=== PATIENT | female | born 1940 | race Caucasian/White ===

== ENCOUNTER 2022-02-05 10:30 | Outpatient (RCR) | payer OTHER, SELFPAY | END 2022-02-05 23:59 | disposition home or self-care (01) | LOC: ANHAUDIO 10:30 | PROVIDERS: PCP Family Medicine; Visit Provider Family Medicine | DX: Z46.1 Encounter for fitting and adjustment of hearing aid (principal) | CPT/HCPCS: 99199; V5261 ==

== ENCOUNTER 2023-12-11 08:22 | Emergency (ER) | payer OTHER, SELFPAY ==
--- NOTE | ~2023-12-11 | XR_ITS ---
XR ankle LT min 3V DATE: 12/11/2023 09:15 INDICATION: Pain and swelling of left ankle. No injury. TECHNIQUE: 4 views COMPARISON: None FINDINGS: Moderate anterolateral soft tissue swelling of the ankle. No fracture or dislocation of the ankle with disruption of the ankle mortise. No periosteal reaction or bone destruction. Mild plantar calcaneal enthesopathy. IMPRESSION: Moderate anterolateral soft tissue swelling; no fracture or dislocation is detected Mild plantar calcaneal enthesopathy Reviewed, dictated and finalized at location A. IMPRESSION: Moderate anterolateral soft tissue swelling; no fracture or disloca tion is detected Mild plantar calcaneal enthesopathy
[2023-12-11 08:30] VITALS: BP 131/57; PULSE 83; RESP 20; TEMP 36.5; O2SAT 98
--- NOTE | 2023-12-11 08:55 | ED.GENADULT ---
HPI - General Adult General Chief complaint: Extremity Problem,Nontraumatic Stated complaint: Left foot swollen/pain Time Seen by Provider: 12/11/23 08:50 Source: patient, family, RN notes reviewed and old records reviewed Mode of arrival: wheelchair Limitations: no limitations History of Present Illness HPI narrative: 83 year old female accompanied by daughter presents to express care with complaints of left ankle pain and swelling for the past 2 days making it difficult and painful to ambulate. Patient reports that she has had a previous episode of similar pain that did resolve with ice and elevation and OTC medication such as Tylenol. Patient reports no injury to her left foot or ankle,states some itching to skin with no rash noted,reports feelings of warmth to left anterior and lateral ankle.Patient reports that she takes daily one aspirin and Tylenol for chronic back pain. MD complaint: swelling and pain to left ankle with warmth and some itching Onset (ago): day(s) (2) Location: left and lower extremity (ankle) Exacerbating factors: movement and other (ambulation) Treatments prior to arrival: aspirin and other (Tylenol) Related Data Home Medications Medication Instructions Recorded Confirmed amlodipine 5 mg tablet mg 12/11/23 atorvastatin 20 mg tablet mg 12/11/23 omeprazole 20 mg capsule,delayed mg 12/11/23 release valsartan 160 mg tablet mg 12/11/23 Allergies Allergy/AdvReac Type Severity Reaction Status Date / Time No Known Allergies Allergy Unverified 04/13/18 11:03 Review of Systems Review of Systems: CONSTITUTIONAL: Denies fever, chills, or sweats. EYES: Denies visual changes, redness, or discharge. ENT: Denies rhinorrhea, congestion, sore throat, or otalgia. CARDIOVASCULAR: Denies chest pain, palpitations, or edema. RESPIRATORY: Denies cough or dyspnea. GASTROINTESTINAL: Denies abdominal pain, nausea, vomiting, or diarrhea. GENITOURINARY: Denies dysuria or hematuria. SKIN: Denies rash, reports some itching to left ankle MUSCULOSKELETAL: Reports history of chronic back pain,positive for left ankle swelling and pain with some noted warmth to area, or myalgia. NEUROLOGIC: Denies headache, numbness, or weakness. PSYCHIATRIC: Denies anxiety or depression. All systems reviewed & are unremarkable except as noted in HPI and below [facility] Past Medical History Medical History (Updated 12/13/23 @ 10:02 by Kasey Ghosh NP) Arthritis Chronic back pain GERD (gastroesophageal reflux disease) Hyperlipidemia Hypertension Surgical History Surgical History (Updated 12/13/23 @ 09:57 by Kasey Ghosh NP) History of carpal tunnel release right Hx of appendectomy Hx of tonsillectomy Family History Family History (Updated 10/02/16 @ 23:56 by DOCTOR UNKNOWN) Sibling Family history of diabetes mellitus in first degree relative Father Family history of diabetes mellitus in first degree relative, Onset Age: 84 Patient's father is Social History Social History (Updated 12/11/23 @ 09:22 by Kasey Ghosh NP) Smoking status: Former smoker Additional smoking assessment comments: quit 1987 Alcohol intake: current Alcohol use details: social Substance use type: does not use Living arrangements: alone Occupation/Education: retired Gender identity (if verbalized by the patient): Female Comments At time of signature, agree with nursing past medical, surgical, social and family history. There is no relevant family history pertinent to the presenting complaint Exam Narrative: GENERAL: Well-appearing, well-nourished, and in no acute distress. HEAD: Normocephalic, atraumatic. EYES: PERRLA and EOMI. ENT: Nares clear, no rhinorrhea or epistaxis. Mucous membranes moist. NECK: Supple.no lymphadenopathy CHEST: Clear to auscultation. No respiratory distress.SAO2 98% on room air HEART: Regular rate and rhythm. No murmur heard. Normal peripheral pulses. ABD
== END 2023-12-11 09:48 | disposition home or self-care (01) ==
PROVIDERS: Emergency Provider Registered Nurse; PCP Family Medicine
DX: M25.572 Pain in left ankle and joints of left foot (principal); M25.472 Effusion, left ankle; Z87.891 Personal history of nicotine dependence; M19.90 Unspecified osteoarthritis, unspecified site; K21.9 Gastro-esophageal reflux disease without esophagitis; E78.5 Hyperlipidemia, unspecified; I10 Essential (primary) hypertension
CPT/HCPCS: 73610; 99213; G0463

== ENCOUNTER 2024-10-27 07:57 | Outpatient (CLI) | payer MEDICARE, SELFPAY ==
--- OUTSIDE RECORDS SUMMARY | 2024-10-27 08:02 | XMS_ITS | Encounter Summary ---
Author Organization [facility] Address [address] [place] [address] Care Team Providers Care Insulation Estimator Name Role Phone Unavailable Primary Care Provider Unavailabl e Encounter Details Date Type Department Care Team (Late st Contact Info) Description 11/10/2021 Lab Requisition [facility] [address] [place] [address] Arnel Rivero Jr., MD [address] [place] [address] Social History Tobacco Use Types Packs/Day Years Used Date Smoking Tobacco: Never Assessed Comments Unknown Sex and Gender Information Value Date Recorded Sex Assigned at Not on file Legal Sex Female 4:41 PM CDT Gender Identity Not on file Sexual Orientation Not on file documented as of this encounter Plan of Treatment Not on file documented as of this encounter Procedures Procedure Name Priority Date/Time Associated Diagnosis Comments DERMATOPATHOLOGY Routine 11/07/2021 12:0 0 AM CDT documented in this encounter Results * DERMATOPATHOLOGY (11/07/2021 12:00 AM CDT) Case Report Dermatopathology Report Case: [id number] Authorizing Provider: Arnel Rivero Jr., MD Collected: 11/07/2021 12:00 AM Ordering Location: [facility] Received: 11/10/2021 10:12 AM Pathologist: Stacie Bailon MD Specimen: Skin, right distal dorsal forearm 4:58 PM CDT DERMATOPATHOLOGY LABORATORY Final Diagnosis Specimen A. 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 2 4:58 PM CDT DERMATOPATHOLOGY LABORATORY Gross Description Specimen A: Received is one formalin filled container labeled with the patient's name and designated right distal dorsal forearm. The specimen consists of a shave biopsy measuring 32u23r0 mm. Jar 0. 4:58 PM CDT DERMATOPATHOLOGY LABORATORY Microscopic Description Specimen A. SKIN, right distal dorsal forearm: The epidermis shows parakeratosis, full thickness disorderly maturation of keratinocytes, mitoses at different levels, and dyskeratotic cells. There is prominent pigmentation in some of the keratinocytes. The number of melanocytes, highlighted by MART-1/Melan-A immunohistochemical staining, is only mildly increased. 4:58 PM CDT DERMATOPATHOLOGY LABORATORY Disclaimer An external and internal positive and negative controls are appropriate for the histochemical, immunohistochemical and immunofluorescence stain(s) in this case (if any), except where stated explicitly. The performance characteristics of the stain(s) cited in this report were developed and its performance characteristic determined by the Dermatopathology Laboratory at [facility], directed by Dr. Maynor Carmona. These tests need not be, and therefore are not, approved by the [place] Food and Drug Administration. The tests are used for clinical purposes. Billing Codes Specimen Charges Stain Charges 28653 1 85736 1 2 4:58 PM CDT DERMATOPATHOLOGY LABORATORY Embedded Images 2 4:58 PM CDT DERMATOPATHOLOGY LABORATORY Pathology/Cytolog y TISSUE SPECIMEN FROM SKIN / Unknown 11/07/2021 11/10/2021 10:12 AM CDT us Arnel Rivero Jr., MD LAB - PATHOLOGY/CYTOLOG Y ORDERABLES Final Result DERMATOPATHOLOGY LABORATORY [facility] - Department of Dermatology [address], [address] [phone] documented in this encounter Visit Diagnoses Not on filedocumented in this encounter
--- OUTSIDE RECORDS SUMMARY | 2024-10-27 08:02 | XMS_ITS | Encounter Summary ---
Author Organization [facility] Address [address] [place] [address] Care Team Providers Care Superintendent Warehouse Name Role Phone Unavailable Primary Care Provider Unavailabl e Encounter Details Date Type Department Care Team (Late st Contact Info) Description 05/17/2023 Lab Requisition [facility] - DermPath Lab [address] [facility] [place] [id number] Arnel Rivero Jr., MD [address] [facility] [address] [place] [address] Social History Tobacco Use Types Packs/Day Years [...] Priority Date/Time Associated Diagnosis Comments DERMATOPATHOLOGY Routine 05/14/2023 12:0 0 AM HISTORY INSTRUCTOR documented in this encounter Results * DERMATOPATHOLOGY (05/14/2023 12:00 AM HISTORY INSTRUCTOR) Case Report Dermatopathology Report Case: [id number] Authorizing Provider: Arnel Rivero Jr., MD Collected: 05/14/2023 12:00 AM Ordering Location: [facility]erm[facility] Lab Received: 05/17/2023 01:04 PM Pathologist: Marie Clark MD Specimens: A) - Skin, left superior forehead B) - Skin, left anterior latral proximal upper arm 1:50 PM HISTORY INSTRUCTOR DERMATOPATHOLOGY LABORATORY Final Diagnosis Specimen A. 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 SKIN, left anterior latral proximal upper arm: BASAL CELL CARCINOMA, SUPERFICIAL MULTIFOCAL (C44.619) 1:50 PM [facility] DERMATOPATHOLOGY LABORATORY Clinical History A: Basal Cell Carcinoma vs. Irritated Seborrheic Keratosis B: Basal Cell Carcinoma 1:50 PM [facility] DERMATOPATHOLOGY LABORATORY Gross Description Specimen A: Received is one formalin filled container labeled with the patient's name and designated left superior forehead. The specimen consists of a shave biopsy measuring 8x6x1 mm. Jar 0. Specimen B: Received is one formalin filled container labeled with the patient's name and designated left anterior latral proximal upper arm. The specimen consists of a shave biopsy measuring 6x5x4 mm. Jar 0. 1:50 PM [facility] DERMATOPATHOLOGY LABORATORY Microscopic Description Specimen A. SKIN, left superior forehead: The epidermis is largely unremarkable. A mild perivascular and perifollicular inflammatory infiltrate composed predominantly of lymphocytes is noted in the upper and mid dermis. Dilated thin-walled superficial dermal blood vessels are observed. Solar elastosis is present. Neutrophils, histiocytes, and multinucleated giant cells are present within the dermis. Specimen B. SKIN, left anterior latral proximal upper arm: Attached to the undersurface of the epidermis, there are small aggregates of basaloid cells with a high nuclear to cytoplasmic ratio and peripheral palisading. 1:50 PM [facility] DERMATOPATHOLOGY LABORATORY Disclaimer An external and internal positive and negative controls are appropriate for the histochemical, immunohistochemical and immunofluorescence stain(s) in this case (if any), except where stated explicitly. The performance characteristics of the stain(s) cited in this report were developed and its performance characteristic determined by the Dermatopathology Laboratory at [facility], directed by Dr. Maynro Carmona. These tests need not be, and therefore are not, approved by the [place] Food and Drug Administration. The tests are used for clinical purposes. Billing Codes Specimen Charges Stain Charges 24252 [id number] 1 1 1:50 PM [facility] DERMATOPATHOLOGY LABORATORY Embedded Images 1:50 PM [facility] DERMATOPATHOLOGY LABORATORY Pathology/Cytology TISSUE SPECIMEN FROM SKIN / Unknown 05/14/2023 05/17/2023 1:04 PM HISTORY INSTRUCTOR Miscellaneous samples (specimen) TISSUE SPECIMEN FROM SKIN / Unknown 05/14/2023 05/17/2023 1:04 PM HISTORY INSTRUCTOR us Arnel Rivero Jr., MD LAB - PATHOLOGY/CYTOLOG Y ORDERABLES Final Result DERMATOPATHOLOGY LABORATORY [facility] - Department of Dermatology [facility] [address] [place] [address], [address] [phone] documented in this encounter Visit Diagnoses Not on filedocumented in this encounter
--- OUTSIDE RECORDS SUMMARY | 2024-10-27 08:02 | XMS_ITS | Clinical Summary ---
Author Organization [facility] [address] [facility] Address [address] [place] [address] Care Team Providers Care School Guidance Counselor Name Role Phone Augustine Lanier MD Primary Care Provider [phone] Allergies No known active allergies Medications calcium carbonate-vitamin D3 (CALCIUM 600 + D,3,) 1500 mg (600 mg elemental) -400 units per tablet 0 0 07/14/19 14 Active vitamins A,C,T-pwve-xgclno (PRESERVISION AREDS) 14,[id number] kelk-ko-abmc capsule 0 0 03/18/20 16 Active aspirin 325 mg enteric coated tablet Take 1 tablet (325 mg total) by mouth as needed for pain Active acetaminophen (TYLENOL) 500 mg tablet Take 1 tablet (500 mg total) by mouth every 6 (six) hours as needed for pain Active vitamin A 10,000 unit capsule Take 1 capsule (10,000 Units total) by mouth daily Active fluticasone propionate (FLONASE) 50 mcg/actuation nasal spray Administer 1 spray into each nostril daily Active azelastine (ASTELIN) 137 mcg (0.1 %) nasal sprayIndications:C hronic rhinitis Administer 2 sprays into each nostril 2 (two) times a day Use in each nostril as directed 120 mL 11 08/03/19 23 Active Additional Information Patient not taking.Reported on 05/03/2024 Trimo-Garcia Jelly 0.025-0.01 % gel USE VAGINALLY WEEKLY DIRECTED NEEDED 09/18/19 23 Active Bacillus coagulans (PROBIOTIC, B. COAGULANS, ORAL) Take 1 tablet by mouth daily Active loratadine (CLARITIN) 10 mg tablet Take 1 tablet (10 mg total) by mouth daily Active UNABLE TO FIND Take 1 each by mouth daily Med Name: LIPO Flavonoid ADVANCED BALANCE SUPPORT Active valsartan (DIOVAN) 160 mg tabletIndications: Primary hypertension TAKE 1 TABLET(160 MG) BY MOUTH DAILY 90 tablet 1 07/06/19 25 Active azithromycin (ZITHROMAX) 250 mg tabletIndications: Lower respiratory infection Take two tabs first day, then one tab daily x 4 days 6 tablet 08/14/19 25 Active albuterol HFA (PROVENTIL HFA,VENTOLIN HFA,PROAIR HFA) 90 mcg/actuation inhaler Inhale 2 puffs every 4 (four) hours as needed for wheezing or shortness of breath 1 each 08/14/19 25 Active amLODIPine (NORVASC) 5 mg tabletIndications: Primary hypertension TAKE 1 TABLET(5 MG) BY MOUTH TWICE DAILY 200 tablet 1 08/19/19 25 Active omeprazole (PriLOSEC) 20 mg capsuleIndications :Gastroesophageal reflux disease TAKE 1 CAPSULE(20 MG) BY MOUTH TWICE DAILY 200 capsule 09/04/19 25 Active atorvastatin (LIPITOR) 20 mg tabletIndications: Mixed hyperlipidemia TAKE 1 TABLET(20 MG) BY MOUTH DAILY 90 tablet 1 09/12/19 25 Active Active Problems Problem Noted Date Diagnosed Date Left ankle swelling 05/03/2024 Left ankle pain 05/03/2024 Rosacea 05/03/2024 Assessment & Plan (05/03/2024 11:26 AM [employer]): Continue following with dermatology. BMI 23.0-23.9, adult 05/03/2024 Respiratory infection 05/03/2024 Assessment & Plan (05/03/2024 1:08 PM [employer]): Recommend oral antihistamine while symptomatic. Also Flonase. Will send in azithromycin. Reviewed the scheduling side effects. RTC if worsening or not resolving. Red flags reviewed. Osteopenia 05/03/2024 Assessment & Plan (05/03/2024 1:08 PM [employer]): Continue calcium and vitamin-D along with weight-bearing exercise. Dexa scan ordered. Will plan accordingly once results are received. Allergic conjunctivitis of both eyes 10/27/2023 Assessment & Plan (10/27/2023 11:28 AM CDT): Recommend Pataday eye drops. Make sure to wash your face and hair after being outdoors. Can also switch from Claritin to alternative oral antihistamine such as Zyrtec. Will monitor response. Chronic rhinitis 08/03/2022 Assessment & Plan (08/03/2022 1:40 PM [employer]): Nasal saline spray (Simply saline, Little Remedies, [place], [place]) 2 second sprays or 2 squeezes into each nostril while looking down over the sink, do not need to sniff in. Aquaphor apply pea-size amount into each nostril with a cotton tipped applicator, being carefully just to tuck it into each nostril, then massage soft portion of the outer nose to massage the ointment around inside the nose twice daily Consider Astelin (azelastine) 2 sprays into each nostril while looking down over the sink, do not sniff in or blow nose after use for at least 30 minutes twice daily Vertigo 08/03/2022 Assessment & Plan (08/03/2022 1:42 PM [employer]): Wear hearing aids Call for referral to Vestibular rehab Continue home exercises Change in bowel movement 07/15/2022 Irritable bowel syndrome wit h both constipation and diarrhea 07/15/2022 Tubular adenoma of colon 07/15/2022 Personal history of colonic polyps 07/15/2022 Overview (07/15/2022): Added automatically from request for surgery [id number] Renal cyst 03/31/2021 Assessment & Plan (03/31/2021 1:44 PM CDT): Renal cyst found incidentally on MRI of back. Patient is scheduled for follow up US. Blepharitis of eyelid of right eye 03/31/2021 Assessment & Plan (03/31/2021 1:45 PM CDT): No current problems. Continues warm compresses and lid washes with diluted baby shampoo. Recommended eye hygiene wipes. GERD (gastroesophageal reflux disease) Assessment & Plan (03/31/2021 1:51 PM CDT): Doing well on omeprazole. Arthritis 03/31/2021 Assessment & Plan (03/31/2021 1:58 PM CDT): Excoriation of right nare, will trial mupirocin tid x 10 days. Instructed on distal application. Encounter [place] annual [place] 03/31/2021 Assessment & Plan (05/03/2024 11:27 AM [employer]): Visit preventive in nature. We reviewed medications, chronic conditions, risk factors, lifestyle recommendations. Reviewed immunization recommendations. Follow-up in 6 months for chronic conditions and 1 year for annual wellness. Assessment & Plan (03/31/2021 2:21 PM CDT): Preventive exam; reviewed recommended preventive screenings and vaccinations. Annual influenza vaccine administered in office today. Wear sunscreen/protective clothing when outdoors. 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 Assessment & Plan (09/23/2020 3:49 PM CDT): Discussed healthy diet and importance of regular physical activity. BMI is acceptable for this patient. Bacterial conjunctivitis of right eye 09/23/2020 Assessment & Plan (09/23/2020 6:16 PM CDT): Polymyxin B sent. Two drops to affected eye four times daily for 7 days. Discussed strict hand hygiene. Not to use hand towel/wasthrag/tissues on both eyes. Discussed how highly contagious it is. Aware to not touch dropper to eye/lashes; will contaminate tip of dropper. Reviewed red flags; what would warrant further evaluation. Chronic back pain 10/27/2019 Assessment & Plan (03/31/2021 1:53 PM CDT): Patient is scheduled to start PT this month. Taking 2 extra strength acetaminophen daily. Assessment & Plan (10/27/2019 4:32 PM CDT): Cyclobenzaprine sent. Reviewed med SE & scheduling. Encouraged otc tylenol/ibuprofen prn back pain. Discussed ice, gentle ROM, increased activity/core strengthening & other non pharm methods of pain relief. Denies bowel/bladder dysfunction. Denies cauda equina. Reviewed red flags. Neoplasm of soft tissue 08/08/2019 Trigger finger, right ring finger 12/12/2018 Trigger thumb of right hand 12/12/2018 Carpal tunnel syndrome of right wrist 12/12/2018 Assessment & Plan (03/31/2021 1:53 PM CDT): Carpal tunnel release 10/2020. Doing well postoperatively, follows with plastics. Trigger finger of left thumb 12/12/2018 Cubital tunnel syndrome on right 11/03/2018 Assessment & Plan (03/31/2021 1:57 PM CDT): 10/2020. Doing well postoperatively, follows with plastics. Assessment & Plan (11/03/2018 12:58 PM CDT): Numbness, tingling, weakness for years, worsening See peripheral nerve testing above Recommend carpal tunnel release, cubital tunnel release, median nerve release at forearm, ulnar nerve transposition in the OR with Dr. Mora Discussed risks, benefits, recovery and patient would like to proceed She will make an appointment to briefly meet Dr. Mora prior to scheduling surgery. Carpal tunnel syndrome on both sides 10/22/2018 Assessment & Plan (11/03/2018 12:58 PM CDT): R>L Numbness, tingling, weakness for years, worsening See peripheral nerve testing above Recommend carpal tunnel release, cubital tunnel release, median nerve release at forearm, ulnar nerve transposition in the OR with Dr. Mora Discussed risks, benefits, recovery and patient would like to proceed She will make an appointment to briefly meet Dr. Mora prior to scheduling surgery. Assessment & Plan (10/22/2018 10:37 AM CDT): To start otc ibuprofen 800mg tid prn w/food. To roll picker over the counter brace at pharmacy & wear as much as possible. Reviewed ergonomics & lifting. To guard R wrist w/lifting as much as possible. Decrease repetitive motion as much as possible. Reviewed +EMG/NCS in recent past. Referral to Dr Mora for eval. Contact info given to mrs Banerjeegary for Dr Mora's office. Reviewed red flags, what would warrant rtc. Hypertension 11/11/2013 Overview (10/02/2016): HYPERTENSION NOS Assessment & Plan (05/03/2024 11:40 AM [employer]): Normotensive. Continue taking amlopidine and valsartan. Red flags reviewed. Assessment & Plan (10/27/2023 11:25 AM CDT): Normotensive. Readings at home are good as well. Will continue with amlodipine, valsartan. Reviewed dash diet. Will continue to monitor. Assessment & Plan (03/31/2021 1:46 PM CDT): Patient BP is well controlled today. Rarely checking at home. Is taking medication as prescribed. Denies headache, cp, palpations, or swelling of lower extremities. Assessment & Plan (09/23/2020 3:49 PM CDT): Copy of results from 09/16/20 given to Di Mcnamara. Reviewed results at time of appointment. The blood pressure is under good control. Ideally it should be under 130/80. Continue medications without adjustment. Continue efforts to eat well (4-5 fruits and veggies) daily and exercise for about 30 min nearly every day. Watch salt intake, keeping to less than 2000mg per day. Limit alcohol. Include strategies to cope with stress. Assessment & Plan (10/27/2019 4:31 PM CDT): The blood pressure is under good control. Ideally it should be under 130/80. Continue medications without adjustment. Continue efforts to eat well (4-5 fruits and veggies) daily and exercise for about 30 min nearly every day. Watch salt intake, keeping to less than 2000mg per day. Limit alcohol. Include strategies to cope with stress. Labs ordered today; will contact w/results once received. Assessment & Plan (10/22/2018 10:36 AM CDT): Hypertension is improving with treatment. Continue current treatment regimen. Dietary sodium restriction. Regular aerobic exercise. Continue current medications. Blood pressure will be reassessed at the next regular appointment. The blood pressure is under good control. Ideally it should be under 130/80. Continue medications without adjustment. Continue efforts to eat well (4-5 fruits and veggies) daily and exercise for about 30 min nearly every day. Watch salt intake, keeping to less than 2000mg per day. Limit alcohol. Include stratagies to cope with stress. Labs will be orderd today. Hyperlipidemia 11/11/2013 Overview (10/01/2016): HYPERLIPIDEMIA NEC/NOS Assessment & Plan (05/03/2024 11:28 AM [employer]): Labs look great! Continue with diet and exercise. Continue taking atorvastatin Assessment & Plan (10/27/2023 11:26 AM CDT): Well controlled on statin. Denies statin side effects. Will continue to monitor. Assessment & Plan (03/31/2021 1:46 PM CDT): Doing well on atrovastatin 20mg daily. Assessment & Plan (09/23/2020 3:42 PM CDT): 5/20/20 TC=16 HDL=52 XX=892 LDL=89 TC/HDL=3.1 09/16/20 GT=121 HDL=39 JC=241 LDL=81 TC/HDL=3.6 Copy of results FROM 09/16/20 given to Di Mcnamara. Reviewed results at time of appointment. Atorvastatin 20mg daily. Assessment & Plan (10/27/2019 4:31 PM CDT): We will check labs and make adjustments to medications as needed. Patient should focus on limiting bad fats in the diet and using exercise as a way to improve the lipid status. Secondary prevention. Reviewed medications. Lipid panel ordered; will call w/results when rec'd. Denies any statin Ses. Reviewed diet/exercise recommendations. Reviewed red flags. Assessment & Plan (10/22/2018 10:36 AM CDT): Lipid abnormalities are improving with treatment. Nutritional counseling was provided. and Pharmacotherapy as ordered. Lipids will be reassessed in 6 months. Secondary prevention. Reviewed medications. Lipid panel ordered; will call w/results when rec'd. Denies any statin Ses. Reviewed diet/exercise recommendations. Reviewed red flags. Resolved Problems Problem Noted Date Diagnosed Date Resolved Date Need for influenza vaccination 03/31/2021 10/27/2023 Encounter for osteoporosis s creening in asymptomatic postmenopausal patient 10/27/2019 03/02/2021 Assessment & Plan (10/27/2019 4:32 PM CDT): DEXA ordered. Will contact with results once received. Refused influenza vaccine 04/21/2019 Assessment & Plan (04/22/2019 5:16 PM CDT): No HD flu vaccine available today. Will rtc when shipment of HD flu vaccine is received. BMI 26.0-26.9,adult 04/21/2019 09/24/19 21 Assessment & Plan (10/27/2019 4:31 PM CDT): Discussed healthy diet and importance of regular physical activity. BMI is acceptable for this patient. Assessment & Plan (04/22/2019 5:16 PM CDT): Discussed healthy diet and importance of regular physical activity. BMI is acceptable for this patient. Medicare annual wellness visit, subsequent 04/21/2019 09/23/2020 Assessment & Plan (04/22/2019 5:17 PM CDT): 1. Eat a healthy diet: focus on lean meats and proteins, more fruits, vegetables and whole grains and low in sugars and fats. Limit red meat and avoid processed meat. 2. Maintain a healthy weight; avoid being overweight. Aim for a normal body mass index (BMI) of 18.5-24.9. Help learning to eat healthier, we can set up appointment with credentials specialist/pet counselor. 3. Have an active lifestyle, strive for 30 minutes of moderate exercise 5 times a week and strength or resistance training at least twice a week. 4. Use broad-spectrum (UVA+UVB) sunscreen with SPF 30 or greater, is water resistant, limit time spent in the sun (10 am-4pm), wear hat, wear UV protective clothing, wear sunglasses. Never use a tanning bed. Skin that was irradiated may be more sensitive over your lifetime. 5. Do not smoke or chew tobacco; participate in a smoking cessation program. 6. Limit alcohol intake, 1 drink per day for a woman BMI 25.0-25.9,adult 10/22/2018 10/27/19 20 Assessment & Plan (10/22/2018 10:36 AM CDT): BMI is acceptable for this patient. Watches intake. Hypercholesterolemia 12/12/2013 019 Overview (10/01/2016): High cholesterol Encounters Date Type Department Care Team Description 10/23/2024 Telephone [facility] [address] [address] Augustine Lanier MD 08/14/2024 10:00 AM [employer] - 08/14/2024 11:59 PM [employer] Hospital Encounter [facility] [address] [place] [address] Cough, unspecified type Discharge Disposition: Discharge to home or self care 08/14/2024 9:00 AM [employer] Office Visit [facility] [address] [place] [address] Jessica Schumacher, RANJIT Lower respiratory infection (Primary Dx); Cough, unspecified type 08/14/2024 Results Follow-Up [facility] [address] [place] [address] Jessica Schumacher NP 08/09/2024 Telephone [facility] [address] [address] Zita Boston, RANJIT Reschedule Appointment from Last 3 Months Immunizations Immunization Administration Dates Next Due H1N1 Inj 03/28/2013 Influenza, Quad, Adjuvantate d, Intramuscular 04/16/2023 Influenza, Quadrivalent, Hig h Dose, Preservative Free, Intrr 03/31/2022,03/31/2021,03/12/2020 Influenza, Quadrivalent, Spl it, Intramuscular 04/02/2015 Influenza, Quadrivalent, Spl it, Preservative Free, Intramuscular 03/18/2016 Influenza, Trivalent, High D ose, Split, Preservative Free, Intramuscular 04/11/2024,03/12/2020,04/23/2019,02/28,03/19/2017 Influenza, Trivalent, IM (MDV) 05/28/2014,2011 Influenza, Trivalent, Preser vative Free, Intramuscular 04/01/2015 Influenza, Unspecified 03/28/2022,2018,04/21/2019(Defer red: Patient Refused - Pt would like the high - dose),03/01/2018 Pneumococcal Conjugate PCV 13 03/18/2016 Pneumococcal Polysaccharide PPV23 06/28/2011,06/2010 RSV, Bivalent, Protein Subun it Rsvpref, Diluent (Abrysvo) 05/28/2023 Tdap 08/16/2018,01/04/2018 Surgical History Surgery Date Site/Laterality Comments APPENDECTOMY Appendectomy TONSILLECTOMY Tonsillectomy OTHER SURGICAL HISTORY Cancer, basal Cell: Excision COLONOSCOPY 06/28/2017 - 07/28/2017 CATARACT EXTRACTION 04/19/2023 Left Medical History Medical History Date Comments Hx Other Medical IBS Hx Other Medical ganglion cyst - Rt wrist Gastroesophageal reflux disease GERD Hypertension Hypertension Hyperlipidemia Hyperlipidemia Rosacea Rosacea Atopic rhinitis Allergic rhiniti s Hx Other Medical Back pain Superficial basal cell carcinoma Cancer, basal Cell Malignant neoplasm of skin Cance r, skin Hx Other Medical tonsilectomyu; Comments: TRR 12/12/2013 - Hx Other Medical hand cyst; Comm ents: TRR 12/12/2013 - Hx Other Medical polio; Comments : TRR 12/12/2013 - Hx Other Medical carpal tunnel; Comments: CLS 03/18/2016 - Hypercholesterolemia 12/12/2013 High choles terol Family History Medical History Relation Name Comments No Known Problems Daughter 1 Esther No Known Problems Daughter 2 Andressa Diabetes Father Diabetes mellit us; Diabetes type II Father Diabetes -T ype II; Cause of : Diabetes -Type II Hyperlipidemia Mother Hyperlipidemi a; Hypertension Mother Hypertension; Other Mother Alive and well; Diabetes Other 1 Family history of Diabetes mellitus; Hyperlipidemia Other 2 Family histor y of Hyperlipidemia; Hypertension Other 3 Family history of Hypertension; Diabetes type II Sister 1 Diabetes -T ype II; Coronary artery disease Sister 2 Megan Moura nary artery disease, premature; No Known Problems Son Arron Relation Name Status Comments Daughter 1 Esther Alive Daughter 2 Andressa Alive Father Mother Other 1 Other 2 Other 3 Sister 1 Sister 2 Megan Alive Son Arron Alive Social History Tobacco Use Types Packs/Day Years Used Date Smoking Tobacco: Former Smokeless Tobacco: Never Tobacco Cessation:Counseling Given: Not Answered Comments:Smoking History Packs/day: 1 Packs Alcohol Use Standard Drinks/Week Comments Not Currently 0 (1 standard drink = 0.6 oz pur e alcohol) AUDIT-C Answer Date Recorded Q1: How often do you have a drink containing alc ohol? 2-3 times a week 04/28/2023 Q2: How many drinks containi ng alcohol do you have on a typical day when you are drinking? 1 or 2 04/28/2023 Q3: How often do you have si x or more drinks on one occasion? Never 04/28/2023 PHQ-2 Answer Date Recorded PHQ-2 Total Score (If total score is 3 or more points, staff should administer the PHQ-9) 0 05/03/2024 Personal Safety Answer Date Recorded Getting School Help Needed Denies 06/11 Comments No Sex and Gender Information Value Date Recorded Sex Assigned at Not on file Legal Sex Female 11:50 PM [employer] Gender Identity Not on file Sexual Orientation Not on file Obstetrics History Para Term AB IAB SAB Ectopic Multiple Livin g Live Births 3 3 3 Date Outcome GA Total Labor Labor/2nd/3rd Weight Sex Type Anes PTL Marielos A1 A5 Name Clin Term Term Term Last Filed Vital Signs Vital Sign Reading Time Taken Comments Blood Pressure 146/60 08/14/2024 8:54 AM [employer] Pulse 70 08/14/2024 8:54 AM [employer] Temperature 36.4 C (97.6 F) 08/14/2024 8:54 AM [employer] Respiratory Rate 18 08/14/2024 8:54 AM [employer] Oxygen Saturation 96% 08/14/2024 8:54 AM [employer] Inhaled Oxygen Concentration - - Weight 56.7 kg (125 lb) 08/14/2024 8:54 AM [employer] Height 157.5 cm (5' 2 ) 08/14/2024 8:54 AM [employer] Body Mass Index 22.86 08/14/2024 8:54 AM [employer] Plan of Treatment Health Maintenance Due Date Last Done Comments Hepatitis B Screening 1958 Zoster Vaccine (1 of 2) 1988 Covid-19 Vaccine (2023-2 5 season) 2024 04/11/2024, 04/16/2023, 03/31/2022, Additional history exists Depression Screening 05/03/2025 05/03/2024, 04/28/2023, 10/30/2022, Additional history exists Fall Risk Assessment 05/03/2025 05/03/2024, 10/27/2023, 04/28/2023, Additional history exists Well Visit 65+ 05/03/2025 05/03/2024, 06/2022, 04/24/2022, Additional history exists Osteoporosis Screening-Bone Density Scan 06/07/2026 06/07/2024, 05/12/2022, 02/19/2020 Colon Cancer Screening-Colonoscopy 09/09/2027 09/08/2022, 07/07/2017, 02/09/2014, Additional history exists DTaP/Tdap/Td Vaccine (3 - Td or Tdap) 08/16/2028 08/16/2018, 01/04/2018 Pneumococcal vaccine 65+ Completed 016, 06/28/2011, 06/28/2010 Influenza Vaccine Completed 04/11/2024, , 03/31/2022, Additional history exists Procedures Procedure Name Priority Date/Time Associated Diagnosis Comments XR CHEST PA LATERAL 2 VIEWS Schedule REBECCA, Read REBECCA (Appt Today, Awaiting Results) 08/14/2024 10:13 AM [employer] Cough, unspecified type POCT RAPID RSV (CPT 00389) Routine 08/14/2024 9:25 AM [employer] Lower respiratory infection Cough, unspecified type POCT INFLUENZA A/B Routine 08/14/2024 9: 25 AM [employer] Lower respiratory infection Cough, unspecified type COVID-19 POC Routine 08/14/2024 9:24 AM [employer] Lower respiratory infection Cough, unspecified type DEXA AXIAL SKELETON BONE DENSITY 1 OR MORE SITES Schedule Routine, Read Routine (OP Routine) 06/07/2024 9:38 AM [employer] Osteopenia of other site COLONOSCOPY 09/08/2022 8:47 AM CDT from Last 3 Months or Most Recently Relevant to Health Maintenance Results * XR Chest Pa Lateral 2 Views (08/14/2024 10:13 AM [employer]) Anatomical Region Laterality Modality Body, Chest N/A Computed Radiogr aphy 08/14/2024 1:44 PM [employer] Narrative 08/14/2024 1:45 PM [employer] EXAM DESCRIPTION: XR CHEST PA LATERAL 2 VIEWS REASON FOR STUDY: cough, weakness, and wheezing x6 days. Rule out pneumonia. Cough x 1 week HTN-controlled TECHNIQUE: 2 radiographic view(s) of the chest. COMPARISON: Chest radiographs 04/24/2021 FINDINGS: The cardiomediastinal silhouette appears normal. There is bibasilar atelectasis, less likely pneumonia. There is no pleural effusion. There are degenerative changes in the thoracic and lumbar spine. There are aortic calcifications. IMPRESSION: Bibasilar atelectasis, less likely pneumonia. THIS IS AN ELECTRONICALLY VERIFIED FINAL REPORT 08/14/2024 1:45 PM - Electronically signed by Jerry Gonzalez M.D. JR: Report ID: [id number] Reading Location: [id number] Procedure Note Jerry Gonzalez MD - 08/14/2024 EXAM DESCRIPTION: XR CHEST PA LATERAL 2 VIEWS REASON FOR STUDY: cough, weakness, and wheezing x6 days. Rule outpneumonia. Cough x 1 week HTN-controlled TECHNIQUE: 2 radiographic view(s) of the chest. COMPARISON: Chest radiographs 04/24/2021 FINDINGS: The cardiomediastinal silhouette appears normal. There is bibasilar atelectasis, less likely pneumonia. There is no pleural effusion. Thereare degenerative changes in the thoracic and lumbar spine. There are aortic calcifications. IMPRESSION: Bibasilar atelectasis, less likely pneumonia. THIS IS AN ELECTRONICALLY VERIFIED FINAL REPORT 08/14/2024 1:45 PM - Electronically signed by Jerry Gonzalez M.D., JR: Report ID: [id number] Reading Location: [place] [address] [place] Jessica Schumacher NP IMG XR PROCEDURES Final Result * POCT rapid RSV (08/14/2024 9:25 AM [employer]) [facility] Rapid RSV, POC Negative Negative Lot Number [id number] QC Control Line Acceptable Swab 08/14/2024 9:25 AM [employer] us Jessica Schumacher NP POINT OF CARE TEST ORDERABLES Fi nal Result * POCT influenza A/B (08/14/2024 9:25 AM [employer] HAND) Rapid Influenza A Ag Negative Negative, Invalid Rapid Influenza B Ag Negative Negative, Invalid Nasal 08/14/2024 9:25 AM [employer] Jessica Schumacher PARTS DATA WRITER POINT OF CARE TEST ORDERABLES Fi nal Result * COVID-19 POC (08/14/2024 9:24 AM [employer] HAND) COVID-19 Ag POC (BD Veritor) Presumptive Negative Presumptive Negative, Invalid [facility] Nasal 08/14/2024 9:24 AM [employer] HAND Jessicaradha Schumacher PARTS DATA WRITER POINT OF CARE TEST ORDERABLES Fi nal Result [facility] [address] [place] [address], [facility] * Dexa Axial Skeleton Bone Density 1 or 2 Site (06/07/2024 9:38 AM [employer]) Anatomical Region Laterality Modality Body N/A Other 06/07/2024 5:21 PM [employer] HAND Narrative 06/07/2024 5:23 PM [employer] EXAM DESCRIPTION: DEXA AXIAL SKELETON BONE DENSITY 1 OR MORE SITES REASON FOR STUDY: 83 y/o year old F with given history of: osteopenia Screening. Postmenopausal Cotton Stomper/Model: eblizz SL (S/N [id number]) CLINICAL INFORMATION: Current height: 62 inches Maximum height: 63.75 inches Weight: 126 pounds Risk factors: Postmenopausal, inflammatory bowel disease COMPARISON: 05/12/2022 FINDINGS: AP LUMBAR SPINE L1-L4: Total BMD is 1.244 g/cm2 T-score is 1.8 This is decreased in comparison to prior exam which is statistically significant. LEFT HIP: Total BMD is 0.795 g/cm2 T-score is -1.2 This is decreased in comparison to prior exam which is statistically significant. Femoral neck BMD is 0.647 g/cm2 T-score is -1.8 FRAX: 10 year risk for a major osteoporotic fracture is 14 %, 10 year risk for a hip fracture is 4.3 % IMPRESSION: Low Bone Mass. REFERENCE: Bone mineral density: T-Score: Normal (T-score above or = -1.0) Low bone mass (T-score between -1.0 and -2.5) replaces the previously used term osteopenia Osteoporosis (T-score = or below -2.5) Z-Score: Within the expected range for age (Z-score above -2.0) Below the expected range for age (Z-score is -2.0 or below) Please see below follow up recommendations. Medical evaluation for secondary causes of low bone mineral density may be appropriate. FRAX is a World Health Organization validated fracture risk assessment tool that calculates a person's 10 year probability of a major osteoporosis related fracture and hip fracture. According to the National Osteoporosis Foundation guidelines, postmenopausal women and men age 50 or older with low bone mass and a 10 year probability of a major osteoporosis related fracture = or greater than 20% or a 10 year probability of a hip fracture = or greater than 3% should be considered for pharmacological treatment for the prevention of osteoporosis. For further information, including treatment recommendations, please refer to the 2019 ISCD Official Positions (http://www.iscd.org) and the NOF's Clinician's Guide to Prevention and Treatment of Osteoporosis (http://www.nof.org/professionals/clinical-guidelines) THIS IS AN ELECTRONICALLY VERIFIED FINAL REPORT 06/07/2024 5:23 PM - Electronically signed by Enrique Deleon M.D. MF: [email or web address] Report ID: [id number] Reading Location: [place] [address] Procedure Note Enrique Deleon MD - 06/07/2024 EXAM DESCRIPTION: DEXA AXIAL SKELETON BONE DENSITY 1 OR MORE SITES REASON FOR STUDY: 83 y/o year old F with given history of: osteopenia Screening. Postmenopausal Cotton Stomper/Model: Sparktrend Discovery SL (S/N [id number]) CLINICAL INFORMATION: Current height: 62 inches Maximum height: 63.75 inches Weight: 126 pounds Risk factors: Postmenopausal, inflammatory bowel disease COMPARISON: 05/12/2022 FINDINGS: AP LUMBAR SPINE L1-L4: Total BMD is 1.244 g/cm2 T-score is 1.8 This is decreased in comparison to prior exam which is statistically significant. LEFT HIP: Total BMD is 0.795 g/cm2 T-score is -1.2 This is decreased in comparison to prior exam which is statistically significant. Femoral neck BMD is 0.647 g/cm2 T-score is -1.8 FRAX: 10 year risk for a major osteoporotic fracture is 14 %, 10 year risk for ahip fracture is 4.3 % IMPRESSION: Low Bone Mass. REFERENCE: Bone mineral density: T-Score: Normal (T-score above or = -1.0) Low bone mass (T-score between -1.0 and -2.5) replaces thepreviously used term osteopenia Osteoporosis (T-score = or below -2.5) Z-Score: Within the expected range for age (Z-score above -2.0) Below the expected range for age (Z-score is -2.0 or below) Please see below follow up recommendations. Medical evaluation forsecondary causes of low bone mineral density may be appropriate. FRAX is a World Health Organization validated fracture risk assessmenttool that calculates a person's 10 year probability of a major osteoporosisrelated fracture and hip fracture. According to the National OsteoporosisFoundation guidelines, postmenopausal women and men age 50 or older with low bonemass and a 10 year probability of a major osteoporosis related fracture = or greater than 20% or a 10 year probability of a hip fracture = or greaterthan 3% should be considered for pharmacological treatment for the preventionof osteoporosis. For further information, including treatment recommendations, please referto the 2019 ISCD Official Positions (http://www.iscd.org) and the NOF's Clinician's Guide to Prevention and Treatment of Osteoporosis (http://www.nof.org/professionals/clinical-guidelines) THIS IS AN ELECTRONICALLY VERIFIED FINAL REPORT 06/07/2024 5:23 PM - Electronically signed by Enrique BRAVO: [facility] Report ID: [id number] Reading Location: [place] [address] us Zita Boston NP IMG DXA PROCEDURES Final R esult * COLONOSCOPY (09/08/2022 8:47 AM CDT) Anatomical Region Laterality Modality Other Narrative Procedure Note Shanice Márquez MD - 09/08/2022 8:47 AM CDT [facility] Patient Name: Di Mcnamara Procedure Date: 09/08/2022 8:47 AM Date of : 1940 Admit Type: Outpatient Age: 81 Gender: Female Attending MD: Shanice Márquez M.D. Room: [facility] ENDOSCOPY ROOM 1 Note Status: Finalized Patient Profile: This is an 81 year old female. Patient has historyof adenoma polyps. Patient has chronic diarrhea. Procedure: Colonoscopy Indications: High risk colon cancer surveillance: Personalhistory of colonic polyps, Last colonoscopy: June 2017 Referring MD: Augustine Lanier M.D. Providers: Shanice Márquez M.D. Impression: - One 12 mm polyp in the ascending colon, removedwith a cold snare. Resected and retrieved. - One 5 mm polyp in the proximal descending colon, removed with a jumbo cold forceps. Resected and retrieved. - One 10 mm polyp in the distal descending colon, removed with a cold snare. Resected andretrieved. - Random colon biopsy performed - Diverticulosis in the sigmoid colon. - Internal hemorrhoids. Recommendation: - Await pathology results. - Repeat colonoscopy is not recommended forscreening purposes. - Continue present medications. Medicines: Monitored Anesthesia Care Complications: No immediate complications. Estimated Blood Loss: Estimated blood loss: none. Procedure: Pre-Anesthesia Assessment: - Prior to the procedure, a History and Physicalwas performed, and patient medications and allergieswere reviewed. The patient's tolerance of previous anesthesia was also reviewed. The risks andbenefits of the procedure and the sedation options and risks were discussed with the patient. All questions were answered, and informed consent was obtained. Prior Anticoagulants: The patient has taken noanticoagulant or antiplatelet agents. ASA Grade Assessment: II -A patient with mild systemic disease. After reviewing the risks and benefits, the patient was deemed in satisfactory condition to undergo the procedure. The benefits, risks and alternatives of theprocedure and sedation were discussed and informed consentwas obtained. All questions were answered. Please referto the signed informed consent document in the medical record. The bowel preparation used was Miralax and bisacodyl tablets via split dose instruction. The scope was passed under direct vision. The Pediatric Colonoscope PCF-H190L [id number] was introducedthrough the anus and advanced to the the cecum, identifiedby appendiceal orifice and ileocecal valve. Thequality of the bowel preparation was good. Bowel prep was administered using a split dose. Findings: The perianal and digital rectal examinations were normal. A 12 mm polyp was found in the ascending colon. The polyp was semi-sessile. The polyp was removed with a cold snare. Resection and retrieval were complete. A 5 mm polyp was found in the proximal descending colon. The polypwas sessile. The polyp was removed with a jumbo cold forceps. Resectionand retrieval were complete. A 10 mm polyp was found in the distal descending colon. The polyp was semi-sessile. The polyp was removed with a cold snare. Resection and retrieval were complete. The colon (entire examined portion) appeared normal otherwise with no inflammatory changes. Random biopsies for histology were taken with a cold forceps from the left colon and transverse colon for evaluationof microscopic colitis. Many small-mouthed diverticula were found in the sigmoid colon. Internal hemorrhoids were found during retroflexion. The hemorrhoids were small. Electronically signed by Shanice Márquez M.D. Shanice Márquez M.D. 09/08/2022 10:30:47 AM Number of Addenda: 0 Note Initiated On: 09/08/2022 8:47 AM Procedure Code(s): --- Professional --- 04536, Colonoscopy, flexible; with removal of tumor(s), polyp(s), or other lesion(s) by snare technique 64611, 59, Colonoscopy, flexible; with biopsy, single or multiple Diagnosis Code(s): --- Professional --- Z86.010, Personal history of colonic polyps D12.2, Benign neoplasm of ascending colon D12.4, Benign neoplasm of descending colon K64.8, Other hemorrhoids K57.30, Diverticulosis of large intestine without perforation orabscess without bleeding CPT copyright 2020 [employer]. All rights reserved. The codes documented in this report are preliminary and upon geriatric care manager reviewmay be revised to meet current compliance requirements. Recognized by the [employer] for promoting quality in endoscopy Shanice Márquez MD ENDOSCOPY PROCEDURES Final Result from Last 3 Months or Most Recently Relevant to Health Maintenance Insurance [facility] MEDICARE ADVANTAGE [facility] [place] [address] Advance Directives For more information, please contact: [phone] * Full Code (Latest Code Status on File) Date Activated Date Inactivated Comments 09/08/2022 8:51 AM 09/08/2022 2:57 PM Care Teams School Guidance Counselor Relationship Specialty Start Date End Date Augustine Lanier MD [address] [place] [address] PCP - General 09/25/16
--- OUTSIDE RECORDS SUMMARY | 2024-10-27 08:02 | XMS_ITS | Clinical Summary ---
Author Organization [facility] Address [address] [place] [address] Care Team Providers Care Offset Platemaker Name Role Phone Unavailable Primary Care Provider Unavailabl e Source Comments [facility],non-owned Affiliates and Associated Physician Practices is amultiple site organization consisting of ambulatory clinics and hospital sitesin [place], [place], [place] and [place]. This disclosure is being madepursuant to the Care Everywhere program and may not contain all information available regarding this patient. Last updated 18.[facility] [employer] Social History Tobacco Use Types Packs/Day Years Used Date Smoking Tobacco: Never Assessed Comments Unknown Sex and Gender Information Value Date Recorded Sex Assigned at Not on file Legal Sex Female 4:41 PM CDT Gender Identity Not on file Sexual Orientation Not on file Plan of Treatment Health Maintenance Due Date Last Done Comments BONE DENSITY TESTING 1940 MEDICARE AWV 12 MONTHS 1940 DTAP/TDAP/TD VACCINES (1 - Tdap) 1957 PNEUMOCOCCAL VACCINE 50+ (1 of 1 - PCV) 1988 ZOSTER VACCINE (1 of 2) 1988 Respiratory Syncytial Virus (RSV) Vaccine Pt: or over 60 yrs (1 - 1-dose 75+ series) 2013 COVID-19 VACCINE ( - 2023-2 5 season) 2024 DEPRESSION SCREENING 06/28/2024 INFLUENZA VACCINE (Season Ended) 2025 HEPATITIS B VACCINE Aged Out No longe r eligible based on patient's age to complete this topic HIB VACCINE Aged Out No longer eligi ble based on patient's age to complete this topic HPV VACCINE Aged Out No longer eligi ble based on patient's age to complete this topic MENINGOCOCCAL (Group B) VACC INE SHARED DECISION-MAKING Aged Out No longer eligibl e based on patient's age to complete this topic MENINGOCOCCAL GROUPS A/C/Y/W VACCINE Aged Out No longer eligible b ased on patient's age to complete this topic Insurance [employer] E[employer]
--- OUTSIDE RECORDS SUMMARY | 2024-10-27 08:02 | XMS_ITS | Encounter Summary ---
Author Organization [facility] Address [address] [place] [address] Care Team Providers Care Promotion Writer Name Role Phone Augustine Lanier MD Primary Care Provider [phone] Reason for Visit * Reason Onset Date Comments Scheduling Appointments 02/16/2020 Called f or DEXA appointment reminder Encounter Details Date Type Department Care Team (Late st Contact Info) Description 02/16/2020 Telephone [facility] [address] [place] [address] Tanya Walsh RT Scheduling Appointments (Called for DEXA appointment reminder) Social History Tobacco Use Types Packs/Day Years Used Date Smoking Tobacco: Former Smokeless Tobacco: Never Comments:Smoking History Pac ks/day: 1 Packs Alcohol Use Standard Drinks/Week Comments Not Currently 0 (1 standard drink = 0.6 oz pur e alcohol) PHQ-2 Answer Date Recorded PHQ-2 Total Score 0 10/27/2019 Comments No Sex and Gender Information Value Date Recorded Sex Assigned at Not on file Legal Sex Female 11:50 PM DERMATOLOGY NURSE PRACTITIONER Gender Identity Not on file Sexual Orientation Not on file documented as of this encounter Plan of Treatment Not on file documented as of this encounter Visit Diagnoses Not on filedocumented in this encounter Additional Health Concerns Infection Onset Date Last Indicated Resolved Time COVID: Suspected 08/14/2024 08/14/2024 08/14/2024 9:25 AM DERMATOLOGY NURSE PRACTITIONER documented as of this encounter Care Teams Promotion Writer Relationship Specialty Start Date End Date Augustine Lanier MD [address] [place] [id number] PCP - General 09/25/16 documented as of this encounter
--- OUTSIDE RECORDS SUMMARY | 2024-10-27 08:02 | XMS_ITS | Continuity of Care Document ---
Author Organization [employer] [facility] Address [address] [facility] [address] [address] Phone Care Team Providers Care Airveyor Operator Name Role Phone Osvaldo Cannon OD Unavailable Unavailable Allergies, Adverse Reactions, Alerts Substance Reaction Status Criticality No Known Allergies Active No Inform ation Medications Medication Instructions Dosage Effective Dates (start - stop) Status Comments methocarbamol 500 mg tablet take 2 tablet by oral route 4 times every day 1000 MG - Active AREDS 2 (unknown strength) Not Available - Active Calcium 500 500 mg calcium (1,250 mg) tablet take 1 capsule by oral route every day 1 capsule - Active Zyrtec 10 mg tablet take 1 tablet by oral route every day 10 MG - Active omeprazole 20 mg capsule,delayed release take 1 capsule by oral route every day before a meal 20 MG - Active amlodipine 5 mg tablet take 1 tablet by oral route every day 5 MG - Active valsartan 160 mg-hydrochlorothiazi de 12.5 mg tablet take 1 tablet by oral route every day 1.00 tablet - Active atorvastatin 20 mg tablet take 1 tablet by oral route every day 20 MG - Active multivitamin capsule take 1 capsule by oral route every day - Active aspirin 81 mg tablet,delayed release take 1 tablet by oral route every day 81 MG - Active Procedures Procedure Date Eye Exam & Treatment No Charge Refraction Contact Lens Assessment Refraction Office/outpatient Visit, Est Eye Exam & Treatment No Charge Refraction Contact Lens Fit, Corneal, Aphakia, 1 Ey e Eye Exam, New Patient CL Replacement - [facility] Other 009 CL Replacement - [facility] Other 009 No Charge Glasses Check No Charge Glasses Check Office/outpatient Visit, Est CL Replacement - [facility] Other 008 CL Replacement - [facility] Other 008 CL Replacement - [facility] Other 008 Eye Exam & Treatment Visual Functional Status Assessed Refraction CL Replacement - [facility] Other 007 CL Replacement - [facility] Other 006 Advance Directives Directive Yes / No Effective Date File Name No Information Encounters Encounter Description Practice Location Reason(s) For Visit Diagnoses Date Provider Providers Copied on Encounter [facility], [address] [place] [address] [address], [place], [place], [address], [phone] SEC [place] MANCIA Professional Complete Exam (chief complaint) Nuclear age-related cataract, both eyesNonexudati ve age-related macular degeneration, left eye, intermediate dry stageNonexudat katelyn age-related macular degeneration, right eye, intermediate dry stageEpiphora, insufficient drainage both eyes 7 Davis Riley. [address] [facility], [address], [place], [place], [address], [place]. tel:[phone] Referring Provider: Hans Johnson, [address] [facility] [address], [place], [address] . tel:[phone] [facility], [address], [place], [place], [address], [place] tel:[phone] SEC [place] GAVINO Professional No Information 7 Pedrito Kumar. [address] [place], [address], [place]. tel:[phone] Office/outpa tient Visit, Est [facility], [address], [place], [place], [address], [place] [phone] SEC [place] MANCIA Professional Cataract Check (chief complaint) Nuclear age-related cataract, both eyesAMD (age-related macular degeneration), bilateral 6 Wankum Hans. [address], [place], [place], [address], [place]. tel:[phone] Specialist : Sancho Jade MD, [address] [facility], [place], [address]. [phone] erring Provider: Nneka Muller MD, [address] [place] [address] [address], [place], [address]. tel:[phone] [facility], [address], [place], [place], [address], [place] tel:[phone] SEC [place] MANCIA Professional No Information 6 Wankum Hans. [address], [address], [place], [place], [address], [place]. tel:[phone] [facility], [address], [place], [place], [address], [place] [phone] SEC [place] MANCIA Professional blurry vision (chief complaint) Nuclear sclerosisAge related macular degenerationMe ibomian gland dysfunction 5 Wankum Hans. [address], [place], [place], [address], [place]. tel:[phone] [facility], [address], [place], [place], [address], [place] [phone] SEC [place] AMNCIA Professional WIE (chief complaint) Age related macular degenerationNu clear sclerosisMacul a hole - 5 Wankum Hans. [address], [place], [place], [address], [place]. tel:[phone] [facility], [address], [place], [place], [address], [place] tel:[phone] SEC [place] Professional No Information Jan-1 7-200 9 [facility] . [address] [facility], [address], [place], [address], [place]. tel:[phone] Referring Provider: Hans Johnson, [address] [facility] [address], [place], [address] . tel:[phone] [facility], [address], [place], [place], [address], tel:[phone] SEC [place] Professional No Information Sep-2 9 [facility] . [address] [facility], [address], [place], [place], [address], [place]. tel:[phone] Referring Provider: Hans Luthermonty Johnson, [address] [facility] [address], [place], [address] . tel:[phone] [facility], [address], [place], [place], [address], [place] tel:[phone] SEC [place] Professional No Information Aug-3 1200 9 Javadalberto Maxwell. [address], [place], [place], [address], [place]. tel:[phone] [facility], [address], [place], [place], [address], [place] tel:[phone] SEC [place] Professional No Information Mar-0 2-200 9 Javadalberto Hans. [address] [facility], [address] [place], [address], [place]. tel:[phone] Office/outpa tient Visit, Est [facility], [address], [place], [place], [address], [place] tel:[phone] SEC [place] GAVINO Professional No Information 2200 9 Usman Maxwell. [address] [facility], [facility] [place], [address], [place]. tel:[phone] [facility], [address], [place], [place], [address], [place] tel:[phone] SEC [place] GAVINO Professional No Information 8200 8 [facility] . [address] [place] [address], [address], [id number], . tel:[phone] Referring Provider: Hans Johnson, [address] [place], [address] . tel:[phone] [facility], [address], [place], [place], [address], [place] tel:[phone] SEC [place] GAVINO Professional No Information 200 8 [facility] . [address] [place] [address], [address], [id number], . tel:[phone] Referring Provider: Hans Johnson, [address] [place], [address] . tel:[phone] sulting Provider: Deidre Simpson, [address] [place], [address]. tel:[phone] [facility], [address], [place], [place], [address], [place] tel:[phone] SEC [place] GAVINO Professional No Information 9200 8 [facility] . [address] [facility], [address], [place], [address], . tel:[phone] Referring Provider: Hans Johnson, [address] [facility] [address], [place], [address] . tel:[phone] [facility], [address], [place], [place], [address], [place] tel:[phone] SEC [place] Professional No Information Kelton-0 2-200 8 Usman Hans. [address] [facility], [facility], [place], [place], [address], [place]. tel:[phone] [facility], [address], [place], [place], [address], [place] tel:[phone] [facility] No Information Sep- 7200 7 [facility] . [address] [facility], [address], [address], . tel:[phone] Referring Provider: Hans Johnson [address] [facility] [address], [place], [address] . tel:[phone] latoya Provider: Deidre Simpson, [address] [place], [address]. tel:[phone] [facility], [address], [place], [place], [address], tel:[phone] SEC [place] Professional No Information May-2 6200 6 [facility] . [address] [facility], [address], [place], [address], . tel:[phone] Referring Provider: Hans Johnson [address] [facility], [place], [address] . tel:[phone] latoya Provider: Deidre Simpson, [address] [place], [address]. tel:[phone] Family History Family Member Type Diagnosis Age At Onset Sister Problem (finding) diabetes mellitus type 2 Mother Problem (finding) degenerative disorder o f macula Payers Payer name Insurance type Covered green party ID Authoriza tion(s) [employer] [id number] Social History Type Description Quantity Date Captured Comments Alcohol Use Details Caffeine Use Details Tobacco Use Status No Information Smoking Status Former smoker Non-Smoking Tobacco Use Details : No Details Available : No Details Available Sex Female Chief Complaint And Reason For Visit From encounter dated '05/27/2017 09:00'. Complete Exam (chief complaint). Description: The 76 year old female presents for Complete Exam in the right eye and left eye. Hx Cataracts OU, CTL wear mono VA. Pt states she is needing CTLs renewed. Pt states VA seems a little more blurred. She has been having trouble driving at night due to VA OU and has a lot of glare with bright lights. Pt has trouble at distance and near. States no pain or discomfort. Wearing SHLOMO dailies 8.4 +3.25/+6.00 Reason For Referral Reason For Referral No Information History Of Present Illness Encounter Date Complaint History Of Prese nt Illness Complete Exam The 76 year old female presents for Complete Exam in the right eye and left eye. Hx Cataracts OU, CTL wear mono VA. Pt states she is needing CTLs renewed. Pt states VA seems a little more blurred. She has been having trouble driving at night due to VA OU and has a lot of glare with bright lights. Pt has trouble at distance and near. States no pain or discomfort. Wearing SHLOMO dailies 8.4 +3.25/+6.00 Cataract Check The 74 year old female presents for evaluation of Cataract Check. Pt has hx or ARMD OU, MGD. Pt wears AV Oasys 8.4 + 3.00 OD + 5.50 OS. Pt states near VA is getting worse and has worn OTC readers over rx specs. Pt reports no flashes or floaters OU. Pt states she has glare issues in sunlight and eyes start tearing. blurry vision The 74 year old female presents for a complete exam. Patient states contacts and glasses need to be updated. Patient is taking an eye vitamin suggested by Retina. Patient c/o ou tears alot. Patient wears AV Oasys 8.4 +3.00 OD +5.50 OS. WIE The 73 year old female presents for a WIE in the left eye. Patient states she is seeing wiggley lines she believes out of OS for the past couple of days. Not sure if it's all the time notices when she is looking at straight images. Functional Status Date Functional Assessmen t No Information Instructions Date Instruction Additional Infor braxton Nuclear age-related cataract, both eyes - Educational material given Related to Nuclear age-related cataract, both eyes Impression/Plan - Di scussed referral to oculoplastic, patient will call if would like referral. Related to Epiphora, insufficient drainage both eyes Impression/Plan - Re turn to Dr Jade as scheduled. Related to Nonexudative age-related macular degeneration, right eye, intermediate dry stage Impression/Plan - Co unseling about the benefits and/or risks of the Age-Related Eye Disease Study (AREDS) formulation for preventing progression of age-related macular degeneration (AMD) was provided to the patient and/or caregiver(s). Related to Nonexudative age-related macular degeneration, left eye, intermediate dry stage Impression/Plan - Gi ifrah glasses and contact lens Rx.Discussed cataracts, will discuss with Dr Jade regarding cataract surgery. Related to Nuclear age-related cataract, both eyes Impression/Plan - Sl ight change in refractive error, rx for glasses given. Order AV Dailies trials OD +3.25 OS +6.00. Patient does not need CL dispensing appt. Pt understands Rosacea can cause problems with oily tear film. Apply warm compresses and massage eyelids every morning. Continue Doxy start Fish Oil 100mg for dry eyes. Will consider Restasis in the future if needed. Macular degeneration, dry type with stable vision. Will continue to monitor vision and the patient has been instructed to call with any vision changes. Continue AREDS 2 formula. Keep follow up appt with Dr Jade. Discussed cataracts with pt and treatment options. pt also understands at this time vision does not qualify to have CE with insurance coverage. Return to clinic in 1 year for complete exam or sooner with any problems. Follow up - Return i n 1 year with Hans Mary M.D. for Complete Exam. Nuclear age-related cataract, both eyes - Educational material given Related to Nuclear age-related cataract, both eyes - Macular degenerati on, dry type with stable vision. Will continue to monitor vision and the patient has been instructed to call with any vision changes. Continue AREDS2 formula. Cataracts discussed, CE not recommended at this time. Discussed MGD with pt and recommend warm compress and massage. Pt aware this may need to be done daily. No change in refraction at this time. Copy of rx for glasses and contacts given. AV Oasys 8.4 OD +3.00 OS +5.50. Return in 6 months for cataract check with BAT prior to dilation. Related to See list of assessments above - Return in 6 months for cataract check with BAT Related to See list of assessments above Nuclear sclerosis - Educational material given Related to Nuclear sclerosis Nuclear sclerosis - Educational material given Related to Nuclear sclerosis - Diagnosis discusse d in detail with pt. Refer to retina for evaluation. Related to See list of assessments above - refer to retina Related to See list of assessments above Assessments Type Assessment Date assessment Nuclear age-related cataract, yosef th eyes impression Nonexudative age-rel ated macular degeneration, left eye, intermediate dry stage: H35.3122 assessment Nonexudative age-rel ated macular degeneration, left eye, intermediate dry stage impression Nonexudative age-rel ated macular degeneration, right eye, intermediate dry stage: H35.3112 assessment Nonexudative age-rel ated macular degeneration, right eye, intermediate dry stage impression Epiphora, insufficient drainage both eyes: H04.223 assessment Epiphora, insufficient drainage both eyes impression Nuclear age-related cataract, both eyes: H25.13. Cataracts affecting vision OU Patient Care Teams Name Effective Dates (start - stop) Status Members No Information
--- OUTSIDE RECORDS SUMMARY | 2024-10-27 08:02 | XMS_ITS | Clinical Summary ---
Author Organization [facility] Address [address] [place] [address] Phone Care Team Providers Care Rigging And Controls Aircraft Mechanic Name Role Phone Augustine Lanier MD Primary Care Provider [phone] Allergies No known active allergies Medications omeprazole (PriLOSEC) 20 MG CAPSULE DELAYED RELEASE Take 20 mg by mouth 2 times daily. Active azelastine (ASTELIN) 0.1 % Solution 2 Sprays by Nasal route 2 times daily. Use in each nostril as directed Active atorvastatin (LIPITOR) 20 MG Tablet Take 20 mg by mouth daily. Active valsartan (DIOVAN) 160 MG Tablet Take 160 mg by mouth daily. Active amLODIPine (NORVASC) 5 MG Tablet Take 5 mg by mouth 2 times daily. Active Multiple Vitamins-Minera ls (PreserVision AREDS 2) Chewable Tablet Take 2 Tablets by mouth daily. Active Vitamin A 2400 MCG (8000 UT) Capsule Take 2,400 mcg by mouth daily. Active CALCIUM PO Take 1,300 mg by mouth daily. Active Bacillus Coagulans-Inuli n (PROBIOTIC-PREB IOTIC PO) Take by mouth daily. Active acetaminophen (TYLENOL) 500 MG Tablet Take 500 mg by mouth as needed. Active aspirin 325 MG Tablet Take 325 mg by mouth as needed. Active fluticasone (FLONASE) 50 MCG/ACT Suspension 1-2 Sprays by Nasal route as needed. Use in each nostril as directed. Active Docusate Calcium (STOOL SOFTENER PO) Take by mouth daily. Active Family History Medical History Relation Name Comments Diabetes Father Hypertension Mother Relation Name Status Comments Father Mother Social History Tobacco Use Types Packs/Day Years Used Date Smoking Tobacco: Former Cigarettes Q uit: 1980 Smokeless Tobacco: Never Tobacco Cessation:Counseling Given: Not Answered Alcohol Use Standard Drinks/Week Comments Yes 4 (1 standard drink = 0.6 oz pur e alcohol) Comments Unknown Sex and Gender Information Value Date Recorded Sex Assigned at Not on file Legal Sex Female 10:53 PM CDT Gender Identity Not on file Sexual Orientation Not on file Last Filed Vital Signs Vital Sign Reading Time Taken Comments Blood Pressure 152/65 05/24/2023 10:28 AM MICROBIOLOGY ANALYST Pulse 70 05/24/2023 10:28 AM MICROBIOLOGY ANALYST Temperature 36 C (96.8 F) 05/24/2023 10:28 AM MICROBIOLOGY ANALYST Respiratory Rate 16 05/24/2023 10:28 AM MICROBIOLOGY ANALYST Oxygen Saturation 98% 05/24/2023 10:28 AM MICROBIOLOGY ANALYST Inhaled Oxygen Concentration - - Weight 58.1 kg (128 lb) 05/10/2023 3:00 PM MICROBIOLOGY ANALYST Height 157.5 cm (5' 2 ) 05/10/2023 3:00 PM MICROBIOLOGY ANALYST Body Mass Index 23.41 05/10/2023 3:00 PM MICROBIOLOGY ANALYST Plan of Treatment Health Maintenance Due Date Last Done Comments DEXA Bone Density 1940 Hepatitis C Virus (HCV) Screening 1940 Zoster Immunization (1 of 2) 1988 Respiratory Syncytial Virus (RSV) Immunization (Adult) (1 - 1-dose 75+ series) 2013 Influenza Immunization (#1) 02/27/202403/29, 03/31/2022, 03/28/2022, Additional history exists SARS-COV-2 Immunization ( season) 2024 04/16/2023, 03/31/2022, 10/31/2021, Additional history exists Pneumococcal Immunization (50+ years) Completed 03/18/2016, 06/28/2011, 06/28/2010 DTaP/Tdap/Td Immunization Discontinued 08/16/2018, 03/2018 TdaP Immunization Completed 08/16/2018, 01/04/2018 Hepatitis B Immunization Aged Out No longer eligible based on patient's age to complete this topic Meningococcal Immunization (ACWY) Aged Out No longer eligible based on patient's age to complete this topic Rotavirus Immunization Aged Out No lo nger eligible based on patient's age to complete this topic Medical Devices Implanted Type Area Take Away Attendant Device Identifier Shelf Expiration Date Model / Serial / Lot Left Lens Implanted:Qty: 1 on 04/19/2023 by [facility] Left: Eye [employer] 02/20/2025 [id number] / [id number] / [id number] Right Lens Implanted:Qty: 1 on 05/24/2023 by Enrique Samuels MD at [facility] Right: Eye [employer] 07/27/2024 [id number] / [id number] / [id number] Insurance MEDICARE [place] [place] [id number] Care Teams Rigging And Controls Aircraft Mechanic Relationship Specialty Start Date End Date Augustine Lanier MD [address] [place] [address] PCP - General Internal Medicine 04/19/23
--- OUTSIDE RECORDS SUMMARY | 2024-10-27 08:02 | XMS_ITS | Encounter Summary ---
Author Organization [facility] Address [address] [facility] [place] [address] Care Team Providers Care Oil Driller Name Role Phone Unavailable Primary Care Provider Unavailabl e Encounter Details Date Type Department Care Team (Late st Contact Info) Description 01/08/[address] [facility] - DermPath Lab [address] [facility] [place] [id number] Arnel Rivero Jr., MD [address] [facility] [address] [place] [address] Social History Tobacco Use Types Packs/Day Years [...] Priority Date/Time Associated Diagnosis Comments DERMATOPATHOLOGY Routine 01/07/2023 12:0 0 AM CDT documented in this encounter Results * DERMATOPATHOLOGY (01/07/2023 12:00 AM CDT) Case Report Dermatopathology Report Case: [id number] Authorizing Provider: Arnel Rivero Jr., MD Collected: 01/07/2023 12:00 AM Ordering Location: [facility] DermPath Lab Received: 01/08/2023 02:14 PM Pathologist: Stacie Bailon MD Specimen: Skin, right clavicular neck 12:59 PM CDT DERMATOPATHOLOGY LABORATORY Final Diagnosis Specimen A. SKIN, right clavicular neck: BASAL CELL CARCINOMA (C44.41) NOT PRESENT AT MARGIN DERMAL SCAR (L90.5) 12:59 PM CDT DERMATOPATHOLOGY LABORATORY Clinical History Basal cell carcinoma Check margin 3 12:59 PM CDT DERMATOPATHOLOGY LABORATORY Gross Description Specimen A: Received is one formalin filled container labeled with the patient's name and designated right clavicular neck.The specimen consists of an ellipse measuring [id number] mm and is oriented with the suture/notch at the 12 o'clock position labeled on the requisition as medial. The 12 to 6 o'clock margin is inked green. The 6 o'clock to 12 o'clock margin is inked black. The 12 o'clock tip is submitted in cassette 1. The 6 o'clock tip is submitted in cassette 2. The remainder of the ellipse is serially sectioned and submitted in cassettes 3-4. Jar 0. 12:59 PM T DERMATOPATHOLOGY LABORATORY Microscopic Description Specimen A. SKIN, right clavicular neck: Within the dermis there are aggregates of basaloid cells with a high nuclear to cytoplasmic ratio and peripheral palisading. This lesion is not present at the margin of the specimen. There are fibroblasts and collagen bundles oriented parallel to the skin surface with elongated blood vessels, some of which are oriented perpendicular to the skin surface. 3 12:59 PM T DERMATOPATHOLOGY LABORATORY Disclaimer An external and internal positive and negative controls are appropriate for the histochemical, immunohistochemical and immunofluorescence stain(s) in this case (if any), except where stated explicitly. The performance characteristics of the stain(s) cited in this report were developed and its performance characteristic determined by the Dermatopathology Laboratory at [facility], directed by Dr. Maynor Carmona. These tests need not be, and therefore are not, approved by the [place] Food and Drug Administration. The tests are used for clinical purposes. Billing Codes Specimen Charges Stain Charges 53029 1 3 12:59 PM CDT DERMATOPATHOLOGY LABORATORY Embedded Images 3 12:59 PM CDT DERMATOPATHOLOGY LABORATORY Pathology/Cytolog y TISSUE SPECIMEN FROM SKIN / Unknown 01/07/2023 01/08/2023 2:14 PM CDT us Arnel Rivero Jr., MD LAB - PATHOLOGY/CYTOLOG Y ORDERABLES Final Result DERMATOPATHOLOGY LABORATORY [facility] - Department of Dermatology [facility] Medicine [address] [place] [address], [address] [phone] documented in this encounter Visit Diagnoses Not on filedocumented in this encounter
--- OUTSIDE RECORDS SUMMARY | 2024-10-27 08:02 | XMS_ITS | Encounter Summary ---
Author Organization [facility] Address [address] [place] [address] Care Team Providers Care Primary Health Organisation Manager Name Role Phone Unavailable Primary Care Provider Unavailabl e Encounter Details Date Type Department Care Team (Late st Contact Info) Description 11/24/2022 Lab Requisition [facility] - DermPath Lab [address] [place] [id number] Arnel Rivero Jr., MD [address] [place] [address] Social History Tobacco Use Types Packs/Day Years [...] Priority Date/Time Associated Diagnosis Comments DERMATOPATHOLOGY Routine 11/20/2022 12:0 0 AM CDT documented in this encounter Results * DERMATOPATHOLOGY (11/20/2022 12:00 AM CDT) Case Report Dermatopathology Report Case: [id number] Authorizing Provider: Arnel Rivero Jr., MD Collected: 11/20/2022 12:00 AM Ordering Location: [facility] DermPath Lab Received: 11/24/2022 01:49 PM Pathologist: Marie Clark MD Specimen: Skin, right clavicular neck 12:27 PM CDT DERMATOPATHOLOGY LABORATORY Final Diagnosis Specimen A. SKIN, right clavicular neck: BASAL CELL CARCINOMA, NODULAR TYPE (C44.41) 12:27 PM CDT DERMATOPATHOLOGY LABORATORY Clinical History Squamous Cell Carcinoma vs Actinic Keratosis vs Basal Cell Carcinoma 3 12:27 PM CDT DERMATOPATHOLOGY LABORATORY Gross Description Specimen A: Received is one formalin filled container labeled with the patient's name and designated right clavicular neck. The specimen consists of a shave biopsy measuring 12x6x1 mm. Jar 0. 12:27 PM CDT DERMATOPATHOLOGY LABORATORY Microscopic Description Specimen A. SKIN, right clavicular neck: Within the dermis there are aggregates of basaloid cells with a high nuclear to cytoplasmic ratio and peripheral palisading. 3 12:27 PM CDT DERMATOPATHOLOGY LABORATORY Disclaimer An external and internal positive and negative controls are appropriate for the histochemical, immunohistochemical and immunofluorescence stain(s) in this case (if any), except where stated explicitly. The performance characteristics of the stain(s) cited in this report were developed and its performance characteristic determined by the Dermatopathology Laboratory at [facility], directed by Dr. Maynor Carmona. These tests need not be, and therefore are not, approved by the [place] Food and Drug Administration. The tests are used for clinical purposes. Billing Codes Specimen Charges Stain Charges 90026 1 3 12:27 PM CDT DERMATOPATHOLOGY LABORATORY Embedded Images 3 12:27 PM CDT DERMATOPATHOLOGY LABORATORY Pathology/Cytolog y TISSUE SPECIMEN FROM SKIN / Unknown 11/20/2022 11/24/2022 1:49 PM CDT Arnel Rivero Jr., MD LAB - PATHOLOGY/CYTOLOG Y ORDERABLES Final Result DERMATOPATHOLOGY LABORATORY [facility] - Department of Dermatology [address], [address] [phone] documented in this encounter Visit Diagnoses Not on filedocumented in this encounter
--- OUTSIDE RECORDS SUMMARY | 2024-10-27 08:02 | XMS_ITS | Referral Summary ---
Author Organization [facility] [address] [facility] Address [address] [place] [address] Care Team Providers Care Child Care Associate Name Role Phone Augustine Lanier MD Primary Care Provider [phone] Encounters Date Type Department Care Team Description 10/23/2024 Telephone [facility] [address] [address] Augustine Lanier MD 08/14/2024 Results Follow-Up [facility] at [address] [place] [address] Jessica Schumacher NP 08/14/2024 10:00 AM ELECTRICAL EXPERIMENTAL MECHANIC - 08/14/2024 11:59 PM ELECTRICAL EXPERIMENTAL MECHANIC Hospital Encounter [facility] [address] [place] [address] Cough, unspecified type Discharge Disposition: Discharge to home or self care 08/14/2024 9:00 AM ELECTRICAL EXPERIMENTAL MECHANIC Office Visit [facility] [address] [place] [address] Jessica Schumacher NP Lower respiratory infection (Primary Dx); Cough, unspecified type 08/09/2024 Telephone [facility] [address] [address] Zita Boston NP Reschedule Appointment from Last 3 Months Allergies No known active allergies Medications calcium carbonate-vitamin D3 (CALCIUM 600 + D,3,) 1500 mg (600 mg elemental) -400 units per tablet 0 0 07/14/19 14 Active vitamins A,C,J-eied-jpwhlj (PRESERVISION AREDS) 14,320-226-200 cibj-kd-ozxo capsule 0 0 03/18/20 16 Active aspirin [...] 05/03/2024 Assessment & Plan (05/03/2024 11:26 AM ELECTRICAL EXPERIMENTAL MECHANIC): Continue following with dermatology. BMI 23.0-23.9, adult 05/03/2024 Respiratory infection 05/03/2024 Assessment & Plan (05/03/2024 1:08 PM ELECTRICAL EXPERIMENTAL MECHANIC): Recommend oral antihistamine while symptomatic. Also Flonase. Will send in azithromycin. Reviewed the scheduling side effects. RTC if worsening or not resolving. Red flags reviewed. Osteopenia 05/03/2024 Assessment & Plan (05/03/2024 1:08 PM ELECTRICAL EXPERIMENTAL MECHANIC): Continue calcium and vitamin-D along with weight-bearing [...] 08/03/2022 Assessment & Plan (08/03/2022 1:40 PM ELECTRICAL EXPERIMENTAL MECHANIC): Nasal saline spray (Simply saline, Little Remedies, Grand, Martin) 2 second sprays or 2 squeezes into [...] 08/03/2022 Assessment & Plan (08/03/2022 1:42 PM ELECTRICAL EXPERIMENTAL MECHANIC): Wear hearing aids Call for referral to Vestibular rehab Continue home exercises Change in bowel movement 07/15/2022 Irritable bowel syndrome wit h both constipation and diarrhea 07/15/2022 Tubular adenoma of colon 07/15/2022 Personal history of colonic polyps 07/15/2022 Overview (07/15/2022): Added automatically from request for surgery [id number] Renal cyst 03/31/2021 Assessment & Plan (03/31/2021 [...] for annual wellness exam in Medicare p atient 03/31/2021 Assessment & Plan (05/03/2024 11:27 AM ELECTRICAL EXPERIMENTAL MECHANIC): Visit preventive in nature. 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 Reviewed ergonomics & lifting. To guard R wrist w/lifting as much as possible. Decrease repetitive motion as much as possible. Reviewed +EMG/NCS in recent past. Referral to Dr Mora for eval. Contact info given to mrs Banerjeefloridazahira for Dr Mora's office. Reviewed red flags, what would warrant rtc. Hypertension 11/11/2013 Overview (10/02/2016): HYPERTENSION NOS Assessment & Plan (05/03/2024 11:40 AM ELECTRICAL EXPERIMENTAL MECHANIC): Normotensive. Continue taking amlopidine and valsartan. Red [...] NEC/NOS Assessment & Plan (05/03/2024 11:28 AM ELECTRICAL EXPERIMENTAL MECHANIC): Labs look great! Continue with diet and exercise. Continue taking atorvastatin Assessment & Plan (10/27/2023 11:26 AM CDT): Well controlled on statin. Denies statin side effects. Will continue to monitor. Assessment & Plan (03/31/2021 1:46 PM CDT): Doing well on atrovastatin 20mg daily. Assessment & Plan (09/23/2020 3:42 PM CDT): 11/15/19 TC=16 HDL=52 EI=622 LDL=89 TC/HDL=3.1 09/16/20 GK=267 HDL=39 KF=985 LDL=81 TC/HDL=3.6 Copy of results FROM 09/16/20 [...] s creening in asymptomatic postmenopausal patient 10/27/2019 03/2 02/2021 Assessment & Plan (10/27/2019 4:32 PM CDT): [...] healthier, we can set up appointment with camp housekeeper/heel stainer. 3. Have an active lifestyle, strive for [...] Hypercholesterolemia 12/12/2013 019 Overview (10/01/2016): High cholesterol Immunizations Immunization Administration Dates Next Due H1N1 [...] it Rsvpref, Diluent (Abrysvo) 05/28/2023 Tdap 08/16/2018,01/04/2018 Social History Tobacco Use Types Packs/Day Years [...] on file Legal Sex Female 11:50 PM ELECTRICAL EXPERIMENTAL MECHANIC Gender Identity Not on file Sexual Orientation Not on file Last Filed Vital Signs Vital Sign Reading Time Taken Comments Blood Pressure 146/60 08/14/2024 8:54 AM ELECTRICAL EXPERIMENTAL MECHANIC Pulse 70 08/14/2024 8:54 AM ELECTRICAL EXPERIMENTAL MECHANIC Temperature 36.4 C (97.6 F) 08/14/2024 8:54 AM ELECTRICAL EXPERIMENTAL MECHANIC Respiratory Rate 18 08/14/2024 8:54 AM ELECTRICAL EXPERIMENTAL MECHANIC Oxygen Saturation 96% 08/14/2024 8:54 AM ELECTRICAL EXPERIMENTAL MECHANIC Inhaled Oxygen Concentration - - Weight 56.7 kg (125 lb) 08/14/2024 8:54 AM ELECTRICAL EXPERIMENTAL MECHANIC Height 157.5 cm (5' 2 ) 08/14/2024 8:54 AM ELECTRICAL EXPERIMENTAL MECHANIC Body Mass Index 22.86 08/14/2024 8:54 AM ELECTRICAL EXPERIMENTAL MECHANIC Plan of Treatment Not on file Procedures Procedure Name Priority Date/Time Associated Diagnosis Comments XR CHEST PA LATERAL 2 VIEWS Schedule REBECCA, Read REBECCA (Appt Today, Awaiting Results) 08/14/2024 10:13 AM ELECTRICAL EXPERIMENTAL MECHANIC Cough, unspecified type POCT RAPID RSV (CPT 13971) Routine 08/14/2024 9:25 AM ELECTRICAL EXPERIMENTAL MECHANIC Lower respiratory infection Cough, unspecified type POCT INFLUENZA A/B Routine 08/14/2024 9: 25 AM ELECTRICAL EXPERIMENTAL MECHANIC Lower respiratory infection Cough, unspecified type COVID-19 POC Routine 08/14/2024 9:24 AM ELECTRICAL EXPERIMENTAL MECHANIC Lower respiratory infection Cough, unspecified type DEXA AXIAL SKELETON BONE DENSITY 1 OR MORE SITES Schedule Routine, Read Routine (OP Routine) 06/07/2024 9:38 AM ELECTRICAL EXPERIMENTAL MECHANIC Osteopenia of other site COLONOSCOPY 09/08/2022 8:47 AM CDT from Last 3 Months or Most Recently Relevant to Health Maintenance Results * XR Chest Pa Lateral 2 Views (08/14/2024 10:13 AM ELECTRICAL EXPERIMENTAL MECHANIC) Anatomical Region Laterality Modality Body, Chest N/A Computed Radiogr aphy 08/14/2024 1:44 PM ELECTRICAL EXPERIMENTAL MECHANIC Narrative 08/14/2024 1:45 PM ELECTRICAL EXPERIMENTAL MECHANIC EXAM DESCRIPTION: XR CHEST PA LATERAL 2 [...] by Jerry Gonzalez M.D. JR: Report ID: [id number] Reading Location: [id number] Procedure Note Jeryr Gonzalez MD - 08/14/2024 EXAM DESCRIPTION: XR [...] by Jerry Gonzalez M.D. JR: Report ID: [id number] Reading Location: [place] [address] Jessica Schumacher HEAD GOLF COACH IMG XR PROCEDURES Final Result * POCT rapid RSV (08/14/2024 9:25 AM ELECTRICAL EXPERIMENTAL MECHANIC) [facility] Rapid RSV, POC Negative Negative Lot Number [id number] QC Control Line Acceptable Swab 08/14/2024 9:25 AM ELECTRICAL EXPERIMENTAL MECHANIC Jessica Schumacher HEAD GOLF COACH POINT OF CARE TEST ORDERABLES Fi nal Result * POCT influenza A/B (08/14/2024 9:25 AM ELECTRICAL EXPERIMENTAL MECHANIC) [facility] Rapid Influenza A Ag Negative Negative, Invalid Rapid Influenza B Ag Negative Negative, Invalid Nasal 08/14/2024 9:25 AM ELECTRICAL EXPERIMENTAL MECHANIC Jessica Schumacher HEAD GOLF COACH POINT OF CARE TEST ORDERABLES Fi nal Result * COVID-19 POC (08/14/2024 9:24 AM ELECTRICAL EXPERIMENTAL MECHANIC) [facility] COVID-19 Ag POC (BD Veritor) Presumptive Negative Presumptive Negative, Invalid [facility] Nasal 08/14/2024 9:24 AM ELECTRICAL EXPERIMENTAL MECHANIC Jessica Schumacher HEAD GOLF COACH POINT OF CARE TEST ORDERABLES Fi nal Result [facility] [address] [place] [address] * Dexa Axial Skeleton Bone Density 1 or 2 Site (06/07/2024 9:38 AM ELECTRICAL EXPERIMENTAL MECHANIC) Anatomical Region Laterality Modality Body N/A Other 06/07/2024 5:21 PM ELECTRICAL EXPERIMENTAL MECHANIC Narrative 06/07/2024 5:23 PM ELECTRICAL EXPERIMENTAL MECHANIC EXAM DESCRIPTION: DEXA AXIAL SKELETON BONE DENSITY 1 OR MORE SITES REASON FOR STUDY: 83 y/o year old F with given history of: osteopenia Screening. 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 MF: [facility] Report ID: [id number] Reading Location: [place] [address] Procedure Note Enrique Deleon MD - 06/07/2024 EXAM DESCRIPTION: DEXA AXIAL SKELETON BONE DENSITY 1 OR MORE SITES REASON FOR STUDY: 83 y/o year old F with given history of: osteopenia Screening. 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 Medical evaluation cox bransonary causes of low bone mineral density may [...] Enrique Deleon M.D. MF: [facility] Report ID: [id number] Reading Location: [id number] Zita Boston NP IMG DXA PROCEDURES Final R esult * COLONOSCOPY (09/08/2022 8:47 AM CDT) Anatomical Region Laterality Modality Other Narrative Procedure Note Shanice Márquez MD - 09/08/2022 8:47 AM CDT [facility] Patient Name: Di Mcnamara Procedure Date: 09/08/2022 8:47 AM Date of : 1940 Admit Type: Outpatient Age: 81 Gender: Female Attending MD: Shanice Márquez M.D. Room: [facility] ENDOSCOPY ROOM 1 Note Status: Finalized Patient [...] under direct vision. The Pediatric Colonoscope [id number] was introducedthrough the anus and advanced to [...] 8:47 AM Procedure Code(s): --- Professional --- 20987, Colonoscopy, flexible; with removal of tumor(s), polyp(s), or other lesion(s) by snare technique 01630, 59, Colonoscopy, flexible; with biopsy, single or multiple Diagnosis Code(s): --- Professional --- Z86.010, Personal history of colonic polyps D12.2, Benign neoplasm of ascending colon D12.4, Benign neoplasm of descending colon K64.8, Other hemorrhoids K57.30, Diverticulosis of large intestine without perforation orabscess without bleeding CPT copyright 2020 [employer]. All rights reserved. The codes documented in this report are preliminary and upon transit vehicle inspector reviewmay be revised to meet current compliance requirements. Recognized by the [employer] for promoting quality in endoscopy Shanice Márquez MD ENDOSCOPY PROCEDURES Final Result from Last 3 Months or Most Recently Relevant to Health Maintenance Insurance [facility] MEDICARE ADVANTAGE [facility] MEDICARE ADVANTAGE Advance Directives For more information, please contact: [phone] * Full Code (Latest Code Status on File) Date Activated Date Inactivated Comments 09/08/2022 8:51 AM 09/08/2022 2:57 PM Care Teams Child Care Associate Relationship Specialty Start Date End Date Augustine Lanier MD [address] [place] [address] PCP - General 09/25/16
== END 2024-10-27 07:58 | disposition home or self-care (01) ==
LOC: ANHAUDIO 07:58
PROVIDERS: PCP Family Medicine; Visit Provider Family Medicine
DX: Z01.10 Encounter for examination of ears and hearing without abnormal findings (principal); H90.3 Sensorineural hearing loss, bilateral
CPT/HCPCS: 92557; 92567